=== PATIENT | male | born 1995 | race Caucasian/White ===

== ENCOUNTER 2020-05-04 23:05 | Emergency (ER) | payer SELFPAY ==
[~2020-05-04] VITALS: Ht 162.6 cm; Wt 124.6 kg
[2020-05-04 23:58] LABS: BASOPHILS % (AUTO) 1 % (0-1); EOSINOPHILS % (AUTO) 5 % (1-7); LYMPHOCYTES % (AUTO) 25 % (22-44); MEAN CORPUSCULAR HEMOGLOBIN 30.7 pg (27.5-34.5); MEAN CORPUSCULAR HGB CONC 33.9 g/dL (33.2-36.2); MEAN PLATELET VOLUME 9.9 fL (7.4-10.4); MONOCYTES % (AUTO) 8 % (2-9); NEUTROPHILS % (AUTO) 61 % (42-75); PLATELET COUNT 267 x10^3/uL (130-400); RED BLOOD COUNT 4.75 x10^6/uL (4.38-5.82); RED CELL DISTRIBUTION WIDTH 13.3 % (9.4-14.8)
[2020-05-05 00:03] LABS: ALANINE AMINOTRANSFERASE 131 U/L (12-78); ALBUMIN 3.6 g/dL (3.4-5.0); ANION GAP 5 mmol/L (5-15); CALCIUM 9.7 mg/dL (8.5-10.1); CHLORIDE 104 mmol/L (98-107); CREATININE 0.97 mg/dL (0.7-1.3)
[2020-05-05 00:04] LABS: ALKALINE PHOSPHATASE 79 U/L (45-117); BILIRUBIN,TOTAL 0.3 mg/dL (0.2-1.0); TOTAL PROTEIN 7.8 g/dL (6.4-8.2)
[2020-05-05 00:08] LABS: MD NO
--- NOTE | 2020-05-05 02:06 | NUR ---
assessment made. chart up for MD to see. patient c/o pain off and on x 1 year, for the past week getting worse. described as pressure. vomited once. + nausea. denies diarrhea.
[2020-05-05 02:07] VITALS: BP 139/106
--- NOTE | 2020-05-05 02:12 | NUR ---
ERP at bedside.
== END 2020-05-05 02:34 | disposition home or self-care (01) ==
LOC: ED 05-05 02:10
DX: K42.9 Umbilical hernia without obstruction or gangrene (principal); R10.30 Lower abdominal pain, unspecified; R05 Cough
CPT/HCPCS: 36415; 80053; 83690; 85025; 99283